=== PATIENT | female | born 1945 | race Caucasian/White ===

== ENCOUNTER → 2018-04-15 | Outpatient (CLI) | payer MEDICARE, BC ==
[~2018-04-15] MED LIST: CARVEDILOL12.5 MG PO; LEVOTHYROXINE75 MCG PO; LORAZEPAM1 MG PO; LOVAZA1 GM PO; NORCO 7.5-3251 EACH PO; PLAVIX75 MG PO; PRAVASTATIN SOD20 MG PO; PREVACID30 M1 PO
--- NOTE | 2018-04-15 12:15 | Diagnostic Imaging Report ---
Exam: Cervical spine, 3 views History: Pain cervical spondylosis Comparison: None. Findings: Cervical spine is visualized from the skull base to the top of T1 on the lateral radiograph. No acute, displaced fracture or subluxation. Soft tissue, ligamentous, and spinal cord abnormalities cannot be excluded on the basis of plain radiography. There is disc space narrowing and marginal disc osteophyte complexes affecting C4-5, C5-6, and C6-7. Bilateral uncovertebral arthrosis at these same levels. Prevertebral soft tissues are of normal thickness. Atlantoaxial interval is within normal limits. Incidental note of calcified granuloma in the left lung apex. Impression: No acute osseous abnormality. Multilevel degenerative disc disease of the cervical spine as above. Signed by: Dr. Aubrey Lopez M.D. on 04/15/2018 12:11 PM
--- NOTE | 2018-04-15 12:17 | Diagnostic Imaging Report ---
Exam: Lumbar spine 2 views History: Spondylosis Comparison: None. Findings: There are 5 nonrib-bearing lumbar-type vertebral bodies. No acute, displaced fracture or subluxation. Multilevel disc space narrowing and marginal osteophytosis affecting L2-3 through L4-L5. Bilateral facet arthropathy at L5-S1. Vertebral body heights are well-maintained. Cholecystectomy clips. Sacroiliac joints are well-maintained. Sacral foramina are intact superiorly. Inferiorly, the sacrum is obscured by rectal gas and stool. Atherosclerotic vascular calcifications. Impression: No acute osseous abnormality. Mild multilevel degenerative disc changes and lumbosacral facet arthropathy. Signed by: Dr. Aubrey Lopez M.D. on 04/15/2018 12:13 PM
== END ==
LOC: RAD 10:54
PROVIDERS: ATTEND Anesthesiology
DX: M47.892 Other spondylosis, cervical region (principal); M47.896 Other spondylosis, lumbar region
CPT/HCPCS: 72040; 72100

== ENCOUNTER → 2018-04-17 | Day surgery (SDC) | payer MEDICARE, BC ==
[2018-04-15 10:39] LABS: BASOPHILS % 0.5 % (0.0-1.0); EOSINOPHILS # (AUTO) 0.3 (0.0-0.4); EOSINOPHILS % 4.2 % (0.0-6.0); HEMATOCRIT 35.1 % (34.2-44.1); HEMOGLOBIN 11.6 g/dL (12.0-16.0); LYMPHOCYTES # (AUTO) 2.5 (1.0-3.2); LYMPHOCYTES % 34.1 % (18.0-39.1); MEAN CORPUSCULAR HEMOGLOBIN 30.3 pg (28-32); MEAN CORPUSCULAR VOLUME 91.6 fL (81-99); MONOCYTES # (AUTO) 0.5 (0.2-0.8); MONOCYTES % 6.1 % (4.4-11.3); NEUTROPHILS # (AUTO) 4.1 (2.1-6.9); NEUTROPHILS % 54.8 % (38.7-80.0); PLATELET COUNT 206 x10e3/uL (140-360); RED BLOOD COUNT 3.83 x10e6/uL (3.6-5.1); RED CELL DISTRIBUTION WIDTH 15.4 % (11.7-14.4)
[~2018-04-17] MED LIST changes: +MIDAZOLAM HCL 2 MG/2 ML VIAL ONE; +ONDANSETRON HCL INJ 2 MG/ML VIAL ONE; +PROPOFOL IV EMULSION 10 MG/ML 50 ML VIAL ONE
[2018-04-17 15:00] VITALS: BP 148/88
--- NOTE | 2018-04-18 06:47 | Operative Report ---
DATE OF PROCEDURE: April 17, 2018 REFERRING PHYSICIAN: Dr. Nancy Pierce PROCEDURES PERFORMED 1. Esophagogastroduodenoscopy with biopsies and esophageal dilatation. 2. Colonoscopy with polypectomy and biopsies. INDICATIONS FOR EGD: Heartburn, indigestion, history of Harding's esophagus, history of dysphagia. INDICATIONS FOR COLONOSCOPY: History of colon polyps, surveillance colonoscopy. MEDICATION: Patient was done under MAC. Please see anesthesiologist's note. PROCEDURE: With the patient in the left lateral decubitus position, the flexible fiberoptic Olympus gastroscope was introduced into the esophagus under direct visualization without any difficulty. There was some patchy erythema noted in the distal esophagus. Minute tongues of velvety red mucosa were noted to extend proximally from the GE junction, and biopsies were obtained to rule out Harding's. The esophagus was then dilated to a size 52-[place]. The scope was then advanced with ease into the stomach, traversing a large hiatal hernia approximately 7 cm in size. The mucosa overlying the antrum and the body revealed some patchy erythema and moderate edema, and biopsies were obtained and sent to stain for H. pylori. Multiple hyperplastic-appearing polyps were noted in the body, and some were partially excised with cold biopsy forceps. Pylorus appeared to be of normal contour and shape. It was intubated with ease, and the scope was advanced all the way to the 2nd portion of the duodenum. The scope was then withdrawn slowly. Mucosa overlying the proximal 2nd portion and the duodenal bulb appeared to be within normal limits. The scope was then withdrawn back into the stomach and retroflexed, and the mucosa overlying the fundus appeared to be within normal limits. The previously described hiatal hernia was also noted in the retroflexed position. A minute nodule was noted in the cardia that was biopsied. The scope was then straightened out. The stomach was decompressed. The scope was subsequently withdrawn. Patient tolerated the procedure well. IMPRESSION 1. Distal esophagitis, mild. 2. Rule out Harding's esophagus. 3. Esophagus dilated to a size 52-[place]. 4. Approximately 7-cm hiatal hernia. 5. Nodule, cardia, biopsied. 6. Gastric polyps, some partially excised with cold biopsy forceps. 7. Gastritis, biopsied. Biopsies sent to stain for H. pylori. PLAN: Follow up histology. Initiate Protonix or continue lansoprazole 30 mg 1 p.o. a.c. b.i.d. The patient was then turned around. After adequate lubrication of the anal canal, a flexible fiberoptic Olympus colonoscope was inserted into the rectum with ease and advanced all the way to the cecum. It was then withdrawn slowly. The mucosa overlying the cecum appeared to be within normal limits. One polyp was snared from the ascending colon. The transverse and descending grossly appeared to be within normal limits. Diverticular disease was noted in the sigmoid colon. The mucosa overlying the sigmoid revealed some patchy areas of erythema and low-grade edema, and biopsies were obtained. There was also a friable fold noted in the sigmoid colon that was biopsied. The rectum grossly appeared to be within normal limits. The scope was then retroflexed into the distal rectum, and small internal hemorrhoids were noted, none of which was actively bleeding. The scope was then straightened out. It was subsequently withdrawn. Also, some external hemorrhoids were noted, and none of them were actively bleeding. Patient tolerated the procedure well. IMPRESSION 1. Ascending colon polyp, snared. 2. Diverticulosis. 3. Friable fold, sigmoid colon, biopsied. 4. Internal hemorrhoids and external hemorrhoids, none of which was actively bleeding. PLAN: Follow up histology. Initiate high-fiber, low-fat diet. Initiate high-fiber supplement. Start VSL #3 one p.o. daily. The patient might benefit from a followup colonoscopy in 3 years. Job#: [id number] MH cc:NANCY PIERCE MD
== END | disposition home or self-care (01) ==
LOC: OR 09:44
PROVIDERS: ATTEND Internal Medicine Gastroenterology
DX: K29.70 Gastritis, unspecified, without bleeding (principal); K63.5 Polyp of colon; K31.7 Polyp of stomach and duodenum; K21.0 Gastro-esophageal reflux disease with esophagitis; K25.9 Gastric ulcer, unspecified as acute or chronic, without hemorrhage or perforation; K58.9 Irritable bowel syndrome, unspecified; K22.70 Barrett's esophagus without dysplasia; K44.9 Diaphragmatic hernia without obstruction or gangrene; K31.89 Other diseases of stomach and duodenum; K57.30 Diverticulosis of large intestine without perforation or abscess without bleeding; K63.89 Other specified diseases of intestine; K64.8 Other hemorrhoids; I10 Essential (primary) hypertension; E03.9 Hypothyroidism, unspecified; F41.9 Anxiety disorder, unspecified; F17.200 Nicotine dependence, unspecified, uncomplicated; Z01.810 Encounter for preprocedural cardiovascular examination; Z01.812 Encounter for preprocedural laboratory examination; Z88.2 Allergy status to sulfonamides; Z79.02 Long term (current) use of antithrombotics/antiplatelets; Z85.3 Personal history of malignant neoplasm of breast; Z86.73 Personal history of transient ischemic attack (TIA), and cerebral infarction without residual deficits; Z80.0 Family history of malignant neoplasm of digestive organs
CPT/HCPCS: 36415; 43239; 43450; 45380; 45385; 85025; 88305; 88312; 93005; J2250; J2405; 45378

== ENCOUNTER 2020-05-19 20:31 | Inpatient (IN) | payer MEDICARE, BC ==
[~2020-05-19] VITALS: Ht 160 cm; Wt 63.5 kg
[2020-05-19 21:18] LABS: BASOPHILS # (AUTO) 0.1 (0.0-0.1); BASOPHILS % 0.6 % (0.0-1.0); EOSINOPHILS # (AUTO) 0.1 (0.0-0.4); EOSINOPHILS % 1.6 % (0.0-6.0); HEMATOCRIT 40.2 % (34.2-44.1); HEMOGLOBIN 13.2 g/dL (12.0-16.0); LYMPHOCYTES # (AUTO) 1.4 (1.0-3.2); LYMPHOCYTES % 17.3 % (18.0-39.1); MEAN CORPUSCULAR HGB CONC 32.8 g/dL (31-35); MEAN CORPUSCULAR VOLUME 91.4 fL (81-99); MONOCYTES # (AUTO) 0.6 (0.2-0.8); MONOCYTES % 7.4 % (4.4-11.3); NEUTROPHILS % 72.4 % (38.7-80.0); PLATELET COUNT 204 x10e3/uL (140-360); RED CELL DISTRIBUTION WIDTH 14.7 % (11.7-14.4)
[2020-05-19 21:35] LABS: ALANINE AMINOTRANSFERASE 165 IU/L (0-55); ALBUMIN 3.5 g/dL (3.5-5.0); ALBUMIN/GLOBULIN RATIO 1.3 (0.8-2.0); ANION GAP 15.5 mmol/L (8-16); BLOOD UREA NITROGEN 18 mg/dL (7-26); BUN/CREATININE RATIO 22 (6-25); CARBON DIOXIDE 31 mmol/L (22-29); CHLORIDE 101 mmol/L (98-107); CREATININE, SERUM 0.83 mg/dL (0.57-1.11); EST GLOMERULAR FILTRATION RATE > 60 ML/MIN (60-); GLUCOSE 134 mg/dL (74-118); POTASSIUM 3.5 mmol/L (3.5-5.1); SODIUM 144 mmol/L (136-145)
[2020-05-19 21:45] LABS: ALKALINE PHOSPHATASE 320 IU/L (40-150)
[2020-05-19] MEDS ORDERED: SODIUM CHLORIDE 0.9% 1000ML 1,000 ML IV SCH (22:30)
[2020-05-19] MEDS ORDERED: CEFEPIME 2 GM/NS 0.9% 100 ML 100 ML IV ONE (22:33)
[2020-05-19] MEDS ORDERED: ALBUTEROL SULFATE HFA 8GM INHALATION AEROSOL INH ONE (22:34)
[2020-05-19] MEDS: CEFEPIME 1GM/NS 0.9% 50 ML 50 ML IV SCH (22:40)
[2020-05-19] MEDS: ALBUTEROL SULFATE HFA 8GM INHALATION AEROSOL INH PRN (22:40)
[2020-05-19] MEDS ORDERED: SODIUM CHLORIDE 0.9% 50ML 50 ML ONE (22:46)
[2020-05-19] MEDS ORDERED: IOPAMIDOL 370 MG/ML 200 ML INFUS..BTL INJ ONE (22:46)
[2020-05-19] MEDS ORDERED: SODIUM CHLORIDE 0.9% 500ML 500 ML IV ONE (23:00)
[2020-05-19] MEDS ORDERED: ONDANSETRON HCL INJ 2MG/ML 2ML 2 MG/ML VIAL IV STA (23:41)
[2020-05-20] VITALS (10 sets, daily range): BP systolic 142–164; BP diastolic 72–86
[2020-05-20] MEDS ORDERED: POLYETHYLENE GLYCOL 3350 17 GM PACK PO PRN (00:30)
[2020-05-20] MEDS ORDERED: MELATONIN 5 MG TABLET PO PRN (00:30)
[2020-05-20] MEDS ORDERED: DEXTROSE 50% SYRINGE 50 ML IV PRN (00:30)
[2020-05-20] MEDS ORDERED: HYDROCODONE/APAP 5MG-325MG TAB PO PRN (00:30)
[2020-05-20] MEDS ORDERED: MORPHINE SULFATE INJ 4 MG/ML INJ 1ML IV PRN ×2 (00:30)
[2020-05-20] MEDS ORDERED: DOCUSATE SODIUM 100 MG CAP PO PRN (00:30)
[2020-05-20] MEDS ORDERED: ONDANSETRON HCL INJ 2MG/ML 2ML 2 MG/ML VIAL IV PRN ×2 (00:30)
[2020-05-20] MEDS ORDERED: HYDRALAZINE HCL 20 MG/ML VIAL IV PRN (00:30)
[2020-05-20 06:17] LABS: BASOPHILS % 0.5 % (0.0-1.0); EOSINOPHILS # (AUTO) 0.1 (0.0-0.4); EOSINOPHILS % 0.7 % (0.0-6.0); HEMATOCRIT 35.7 % (34.2-44.1); HEMOGLOBIN 11.7 g/dL (12.0-16.0); LYMPHOCYTES # (AUTO) 1.3 (1.0-3.2); LYMPHOCYTES % 17.3 % (18.0-39.1); MEAN CORPUSCULAR HEMOGLOBIN 30.3 pg (28-32); MEAN CORPUSCULAR HGB CONC 32.8 g/dL (31-35); MEAN CORPUSCULAR VOLUME 92.5 fL (81-99); MONOCYTES # (AUTO) 0.6 (0.2-0.8); NEUTROPHILS # (AUTO) 5.4 (2.1-6.9); NEUTROPHILS % 72.4 % (38.7-80.0); PLATELET COUNT 145 x10e3/uL (140-360); RED BLOOD COUNT 3.86 x10e6/uL (3.6-5.1); RED CELL DISTRIBUTION WIDTH 14.9 % (11.7-14.4)
[2020-05-20 06:48] LABS: ALANINE AMINOTRANSFERASE 133 IU/L (0-55); ALBUMIN 2.9 g/dL (3.5-5.0); ALBUMIN/GLOBULIN RATIO 1.2 (0.8-2.0); ALKALINE PHOSPHATASE 270 IU/L (40-150); ANION GAP 14.9 mmol/L (8-16); BLOOD UREA NITROGEN 19 mg/dL (7-26); BUN/CREATININE RATIO 27 (6-25); CALCIUM 9.4 mg/dL (8.4-10.2); CARBON DIOXIDE 27 mmol/L (22-29); CHLORIDE 105 mmol/L (98-107); EST GLOMERULAR FILTRATION RATE > 60 ML/MIN (60-); GLUCOSE 104 mg/dL (74-118); POTASSIUM 3.9 mmol/L (3.5-5.1); SODIUM 143 mmol/L (136-145)
[2020-05-20] MEDS ORDERED: PANTOPRAZOLE SOD 40 MG TABEC PO SCH ×2 (07:30→16:30)
[2020-05-20] MEDS: CEFEPIME 1GM/NS 0.9% 50 ML 50 ML IV SCH ×2 (10:00→21:25)
[2020-05-20 10:01] LABS: INR 1.08; PROTHROMBIN TIME 14.6 seconds (11.9-14.5)
[2020-05-20] MEDS ORDERED: SODIUM CHLORIDE 0.9% 250ML 250 ML ONE (10:16)
[2020-05-20] MEDS: SODIUM CHLORIDE 0.9% 1000ML 1,000 ML IV SCH (13:45)
[2020-05-20] MEDS ORDERED: LORAZEPAM 0.5 MG TAB PO PRN (14:00)
[2020-05-20] MEDS: ALBUTEROL SULFATE HFA 8GM INHALATION AEROSOL INH PRN (14:30)
[2020-05-20] MEDS: CARVEDILOL 12.5 MG TAB PO SCH (16:44)
[2020-05-20] MEDS: PANTOPRAZOLE 40 MG 10ML VIAL IV SCH (16:44)
[2020-05-20] MEDS: PRAVASTATIN 20 MG TAB PO SCH (20:17)
[2020-05-20] MEDS: ACETAMINOPHEN 325 MG TAB PO PRN (22:36)
[2020-05-21] VITALS (7 sets, daily range): BP systolic 107–150; BP diastolic 59–77
[2020-05-21] MEDS: SODIUM CHLORIDE 0.9% 1000ML 1,000 ML IV SCH (04:24)
[2020-05-21] MEDS: LEVOTHYROXINE SODIUM 75 MCG TAB PO SCH (05:28)
[2020-05-21 06:58] LABS: BASOPHILS % 0.6 % (0.0-1.0); EOSINOPHILS # (AUTO) 0.1 (0.0-0.4); EOSINOPHILS % 1.3 % (0.0-6.0); HEMATOCRIT 33.7 % (34.2-44.1); HEMOGLOBIN 10.9 g/dL (12.0-16.0); LYMPHOCYTES # (AUTO) 1.4 (1.0-3.2); MEAN CORPUSCULAR HEMOGLOBIN 30.9 pg (28-32); MEAN CORPUSCULAR HGB CONC 32.3 g/dL (31-35); MEAN CORPUSCULAR VOLUME 95.5 fL (81-99); MONOCYTES # (AUTO) 0.5 (0.2-0.8); MONOCYTES % 7.6 % (4.4-11.3); NEUTROPHILS # (AUTO) 4.9 (2.1-6.9); NEUTROPHILS % 69.1 % (38.7-80.0); PLATELET COUNT 176 x10e3/uL (140-360); RED BLOOD COUNT 3.53 x10e6/uL (3.6-5.1); RED CELL DISTRIBUTION WIDTH 14.9 % (11.7-14.4)
[2020-05-21 07:27] LABS: ALANINE AMINOTRANSFERASE 114 IU/L (0-55); ALBUMIN 2.8 g/dL (3.5-5.0); ALBUMIN/GLOBULIN RATIO 1.3 (0.8-2.0); ALKALINE PHOSPHATASE 268 IU/L (40-150); ANION GAP 15.4 mmol/L (8-16); BLOOD UREA NITROGEN 17 mg/dL (7-26); BUN/CREATININE RATIO 24 (6-25); CALCIUM 8.8 mg/dL (8.4-10.2); CARBON DIOXIDE 25 mmol/L (22-29); CHLORIDE 106 mmol/L (98-107); CREATININE, SERUM 0.71 mg/dL (0.57-1.11); EST GLOMERULAR FILTRATION RATE > 60 ML/MIN (60-); GLUCOSE 74 mg/dL (74-118); POTASSIUM 3.4 mmol/L (3.5-5.1); SODIUM 143 mmol/L (136-145)
[2020-05-21] MEDS ORDERED: FENTANYL CITRATE/PF 100MCG/2 ML INJ ONE (08:51)
[2020-05-21] MEDS ORDERED: MIDAZOLAM HCL 2 MG/2 ML VIAL ONE (08:51)
[2020-05-21] MEDS: CARVEDILOL 12.5 MG TAB PO SCH ×2 (09:00→17:29)
[2020-05-21] MEDS: PANTOPRAZOLE 40 MG 10ML VIAL IV SCH ×2 (09:00→17:28)
[2020-05-21] MEDS ORDERED: LIDOCAINE HCL 2% 30 ML TUBE ONE (09:53)
[2020-05-21] MEDS ORDERED: LIDOCAINE HCL 4% 50 ML BTL ONE (09:53)
[2020-05-21] MEDS ORDERED: EPINEPHRINE HCL 1:1000 1ML 1 MG/ML AMP ONE (09:53)
[2020-05-21] MEDS ORDERED: MORPHINE SULFATE 2 MG/ML SYR 1ML IV PRN (12:15)
[2020-05-21] MEDS: CEFEPIME 1GM/NS 0.9% 50 ML 50 ML IV SCH ×2 (12:15→21:17)
[2020-05-21] MEDS: ACETAMINOPHEN 325 MG TAB PO PRN ×2 (12:27→21:17)
[2020-05-21 14:41] LABS: FERRITIN 93.04 ng/mL (4.63-204.00)
[2020-05-21 19:59] LABS: CLARITY,URINE SL CLOUDY (CLEAR); COLOR,URINE YELLOW (YELLOW)
[2020-05-21 20:00] LABS: BILIRUBIN,URINE NEGATIVE (NEGATIVE); KETONES,URINE 2+ (NEGATIVE); LEUKOCYTE ESTERASE ,URINE NEGATIVE (NEGATIVE); NITRITE,URINE NEGATIVE (NEGATIVE); PROTEIN,URINE DIPSTICK NEGATIVE (NEGATIVE); URINE UROBILINOGEN 0.2 mg/dL (0.2 - 1)
[2020-05-21 20:17] LABS: AMORPHOUS SEDIMENT,URINE MODERATE (FEW); BACTERIA,URINE MODERATE /HPF; EPITHELIAL CELLS,URINE FEW /LPF
[2020-05-21] MEDS: PRAVASTATIN 20 MG TAB PO SCH (21:00)
[2020-05-21] MEDS ORDERED: SODIUM CHLORIDE 0.9% 250ML 0 ML ONE (21:05)
[2020-05-22] VITALS (8 sets, daily range): BP systolic 115–154; BP diastolic 60–94
[2020-05-22] MEDS: LEVOTHYROXINE SODIUM 75 MCG TAB PO SCH (05:22)
[2020-05-22 05:38] LABS: BASOPHILS % 0.5 % (0.0-1.0); EOSINOPHILS # (AUTO) 0.1 (0.0-0.4); EOSINOPHILS % 1.6 % (0.0-6.0); HEMATOCRIT 33.5 % (34.2-44.1); HEMOGLOBIN 11.1 g/dL (12.0-16.0); LYMPHOCYTES # (AUTO) 1.1 (1.0-3.2); LYMPHOCYTES % 18.1 % (18.0-39.1); MEAN CORPUSCULAR HEMOGLOBIN 30.8 pg (28-32); MEAN CORPUSCULAR HGB CONC 33.1 g/dL (31-35); MEAN CORPUSCULAR VOLUME 93.1 fL (81-99); MONOCYTES # (AUTO) 0.5 (0.2-0.8); MONOCYTES % 7.3 % (4.4-11.3); NEUTROPHILS # (AUTO) 4.5 (2.1-6.9); NEUTROPHILS % 70.8 % (38.7-80.0); PLATELET COUNT 157 x10e3/uL (140-360); RED CELL DISTRIBUTION WIDTH 14.6 % (11.7-14.4)
[2020-05-22 06:09] LABS: ALANINE AMINOTRANSFERASE 155 IU/L (0-55); ALBUMIN/GLOBULIN RATIO 1.3 (0.8-2.0); ALKALINE PHOSPHATASE 294 IU/L (40-150); ANION GAP 13.4 mmol/L (8-16); BLOOD UREA NITROGEN 14 mg/dL (7-26); BUN/CREATININE RATIO 19 (6-25); CALCIUM 9.4 mg/dL (8.4-10.2); CARBON DIOXIDE 27 mmol/L (22-29); CHLORIDE 104 mmol/L (98-107); CREATININE, SERUM 0.74 mg/dL (0.57-1.11); EST GLOMERULAR FILTRATION RATE > 60 ML/MIN (60-); GLUCOSE 85 mg/dL (74-118); POTASSIUM 3.4 mmol/L (3.5-5.1); SODIUM 141 mmol/L (136-145)
[2020-05-22] MEDS: CARVEDILOL 12.5 MG TAB PO SCH ×2 (08:57→17:26)
[2020-05-22] MEDS: PANTOPRAZOLE 40 MG 10ML VIAL IV SCH ×2 (08:57→17:26)
[2020-05-22] MEDS: CEFEPIME 1GM/NS 0.9% 50 ML 50 ML IV SCH ×2 (08:57→20:58)
[2020-05-22] MEDS: ACETAMINOPHEN 325 MG TAB PO PRN ×2 (09:00→21:03)
[2020-05-22] MEDS ORDERED: HYDROCODONE/APAP 5MG-325MG TAB PO PRN (13:15)
[2020-05-22] MEDS ORDERED: POTASSIUM CHLORIDE 20 MEQ TAB CR PO ONE (13:30)
[2020-05-22] MEDS: ENOXAPARIN SOD INJ 40 MG/0.4 ML SYR SC SCH (17:26)
[2020-05-22] MEDS: PRAVASTATIN 20 MG TAB PO SCH (20:58)
[2020-05-23] VITALS (8 sets, daily range): BP systolic 121–156; BP diastolic 60–78
[2020-05-23] MEDS: LEVOTHYROXINE SODIUM 75 MCG TAB PO SCH (05:26)
[2020-05-23] MEDS: PANTOPRAZOLE 40 MG 10ML VIAL IV SCH ×2 (09:12→16:33)
[2020-05-23] MEDS: CARVEDILOL 12.5 MG TAB PO SCH ×2 (09:12→18:04)
[2020-05-23] MEDS: CEFEPIME 1GM/NS 0.9% 50 ML 50 ML IV SCH ×2 (09:12→21:09)
[2020-05-23] MEDS: SUCRALFATE 1 GM/10 ML SUSP NG SCH ×2 (18:04→21:00)
[2020-05-23] MEDS: ENOXAPARIN SOD INJ 40 MG/0.4 ML SYR SC SCH (18:04)
[2020-05-23] MEDS: PRAVASTATIN 20 MG TAB PO SCH (21:00)
[2020-05-24] VITALS (8 sets, daily range): BP systolic 123–148; BP diastolic 64–81
[2020-05-24] MEDS: LEVOTHYROXINE SODIUM 75 MCG TAB PO SCH (05:46)
[2020-05-24 05:58] LABS: ALANINE AMINOTRANSFERASE 178 IU/L (0-55); ALBUMIN 2.8 g/dL (3.5-5.0); ALBUMIN/GLOBULIN RATIO 1.2 (0.8-2.0); ALKALINE PHOSPHATASE 336 IU/L (40-150); ANION GAP 14.7 mmol/L (8-16); BLOOD UREA NITROGEN 12 mg/dL (7-26); BUN/CREATININE RATIO 17 (6-25); CALCIUM 9.3 mg/dL (8.4-10.2); CARBON DIOXIDE 29 mmol/L (22-29); CHLORIDE 102 mmol/L (98-107); CREATININE, SERUM 0.72 mg/dL (0.57-1.11); EST GLOMERULAR FILTRATION RATE > 60 ML/MIN (60-); GLUCOSE 81 mg/dL (74-118); POTASSIUM 3.7 mmol/L (3.5-5.1); SODIUM 142 mmol/L (136-145)
[2020-05-24] MEDS: SUCRALFATE 1 GM/10 ML SUSP NG SCH ×4 (07:30→21:00)
[2020-05-24] MEDS: GUAIFENESIN/CODEINE 10 ML CUP PO PRN (07:57)
[2020-05-24] MEDS: CARVEDILOL 12.5 MG TAB PO SCH ×2 (09:00→16:44)
[2020-05-24] MEDS: PANTOPRAZOLE 40 MG 10ML VIAL IV SCH (09:00)
[2020-05-24] MEDS: CEFEPIME 1GM/NS 0.9% 50 ML 50 ML IV SCH ×2 (09:05→22:00)
[2020-05-24] MEDS ORDERED: LEVOFLOXACIN250 MG PO (13:43)
[2020-05-24] MEDS ORDERED: TESSALON PERLE100 MG PO (13:44)
[2020-05-24] MEDS: PANTOPRAZOLE SOD 40 MG TABEC PO SCH (16:30)
[2020-05-24] MEDS: PRAVASTATIN 20 MG TAB PO SCH (21:00)
[2020-05-25] VITALS (8 sets, daily range): BP systolic 122–152; BP diastolic 64–72
[2020-05-25 05:16] LABS: BASOPHILS # (AUTO) 0.1 (0.0-0.1); BASOPHILS % 0.8 % (0.0-1.0); EOSINOPHILS # (AUTO) 0.2 (0.0-0.4); HEMATOCRIT 33.9 % (34.2-44.1); HEMOGLOBIN 11.4 g/dL (12.0-16.0); LYMPHOCYTES # (AUTO) 1.3 (1.0-3.2); MEAN CORPUSCULAR HEMOGLOBIN 31.3 pg (28-32); MEAN CORPUSCULAR HGB CONC 33.6 g/dL (31-35); MEAN CORPUSCULAR VOLUME 93.1 fL (81-99); MONOCYTES # (AUTO) 0.6 (0.2-0.8); MONOCYTES % 7.8 % (4.4-11.3); NEUTROPHILS # (AUTO) 5.2 (2.1-6.9); NEUTROPHILS % 70.5 % (38.7-80.0); PLATELET COUNT 159 x10e3/uL (140-360); RED BLOOD COUNT 3.64 x10e6/uL (3.6-5.1); RED CELL DISTRIBUTION WIDTH 14.5 % (11.7-14.4)
[2020-05-25 05:39] LABS: ANION GAP 13.6 mmol/L (8-16); BLOOD UREA NITROGEN 16 mg/dL (7-26); BUN/CREATININE RATIO 22 (6-25); CALCIUM 9.9 mg/dL (8.4-10.2); CARBON DIOXIDE 29 mmol/L (22-29); CHLORIDE 102 mmol/L (98-107); CREATININE, SERUM 0.74 mg/dL (0.57-1.11); EST GLOMERULAR FILTRATION RATE > 60 ML/MIN (60-); GLUCOSE 97 mg/dL (74-118); POTASSIUM 3.6 mmol/L (3.5-5.1); SODIUM 141 mmol/L (136-145)
[2020-05-25] MEDS: LEVOTHYROXINE SODIUM 75 MCG TAB PO SCH (06:00)
[2020-05-25] MEDS: SUCRALFATE 1 GM/10 ML SUSP NG SCH ×4 (07:30→21:19)
[2020-05-25] MEDS: CARVEDILOL 12.5 MG TAB PO SCH ×2 (09:00→17:18)
[2020-05-25] MEDS: CEFEPIME 1GM/NS 0.9% 50 ML 50 ML IV SCH ×2 (09:01→22:00)
[2020-05-25] MEDS: PANTOPRAZOLE SOD 40 MG TABEC PO SCH ×2 (11:26→17:18)
[2020-05-25] MEDS ORDERED: LIDOCAINE HCL 4% 50 ML BTL ONE (11:53)
[2020-05-25] MEDS ORDERED: LIDOCAINE HCL 2% 30 ML TUBE ONE (11:54)
[2020-05-25] MEDS ORDERED: EPINEPHRINE HCL 1:1000 1ML 1 MG/ML AMP ONE (11:54)
[2020-05-25] MEDS ORDERED: LIDOCAINE HCL 2% LOCAL INJ 5 ML SDV VIAL INJ ONE (12:38)
[2020-05-25] MEDS ORDERED: ONDANSETRON HCL INJ 2MG/ML 2ML 2 MG/ML VIAL ONE (12:38)
[2020-05-25] MEDS ORDERED: PHENYLEPHRINE HCL 1% 10 MG/ML VIAL ONE (12:38)
[2020-05-25] MEDS ORDERED: PROPOFOL IV EMULSION 10 MG/ML 20 ML VIAL ONE (12:38)
[2020-05-25] MEDS ORDERED: SEVOFLURANE INHAL SOLN 250 ML PEN BTL ONE (12:38)
[2020-05-25] MEDS: PRAVASTATIN 20 MG TAB PO SCH (21:19)
[2020-05-25] MEDS: GUAIFENESIN/CODEINE 10 ML CUP PO PRN (23:52)
[2020-05-25] MEDS: ONDANSETRON HCL 4 MG ORAL DISINTEGRATING TAB PO PRN (23:52)
[2020-05-26] VITALS (7 sets, daily range): BP systolic 125–152; BP diastolic 52–74
[2020-05-26] MEDS: BENZONATATE 100 MG CAP PO PRN ×2 (02:35→17:20)
[2020-05-26] MEDS: GUAIFENESIN/CODEINE 10 ML CUP PO PRN ×3 (05:45→22:00)
[2020-05-26] MEDS: LEVOTHYROXINE SODIUM 75 MCG TAB PO SCH (06:00)
[2020-05-26] MEDS: PANTOPRAZOLE SOD 40 MG TABEC PO SCH ×2 (09:34→17:12)
[2020-05-26] MEDS: CARVEDILOL 12.5 MG TAB PO SCH ×2 (09:34→17:12)
[2020-05-26] MEDS: SUCRALFATE 1 GM/10 ML SUSP NG SCH ×4 (09:35→21:30)
[2020-05-26] MEDS ORDERED: SODIUM CHLORIDE 0.9% 250ML 250 ML ONE (09:45)
[2020-05-26] MEDS: CEFEPIME 1GM/NS 0.9% 50 ML 50 ML IV SCH ×2 (09:45→21:30)
[2020-05-26] MEDS ORDERED: GADOBENATE DIMEGLUMINE 1 ML IV ONE (12:13)
[2020-05-26] MEDS: ENOXAPARIN SOD INJ 40 MG/0.4 ML SYR SC SCH (17:15)
[2020-05-26] MEDS: PRAVASTATIN 20 MG TAB PO SCH (21:00)
[2020-05-27] VITALS (9 sets, daily range): BP systolic 113–145; BP diastolic 54–86
[2020-05-27] MEDS: BENZONATATE 100 MG CAP PO PRN ×2 (04:45→18:33)
[2020-05-27] MEDS: LEVOTHYROXINE SODIUM 75 MCG TAB PO SCH (05:07)
[2020-05-27] MEDS: ALBUTEROL/IPRATROPIUM 3 ML NEB NEB PRN (05:31)
[2020-05-27] MEDS: GUAIFENESIN/CODEINE 10 ML CUP PO PRN ×2 (08:47→21:12)
[2020-05-27] MEDS: PANTOPRAZOLE SOD 40 MG TABEC PO SCH ×2 (08:54→17:12)
[2020-05-27] MEDS: CEFEPIME 1GM/NS 0.9% 50 ML 50 ML IV SCH ×2 (08:54→21:12)
[2020-05-27] MEDS: SUCRALFATE 1 GM/10 ML SUSP NG SCH ×4 (08:54→21:11)
[2020-05-27] MEDS: CARVEDILOL 12.5 MG TAB PO SCH ×2 (09:20→18:01)
[2020-05-27] MEDS: ALLOPURINOL 100 MG TAB PO SCH ×2 (12:33→21:11)
[2020-05-27] MEDS: PYRIDOSTIGMINE BROMIDE 60 MG TAB PO SCH ×2 (15:42→21:11)
[2020-05-27] MEDS: ACETAMINOPHEN 325 MG TAB PO PRN (17:12)
[2020-05-27] MEDS: PRAVASTATIN 20 MG TAB PO SCH (20:39)
[2020-05-27] MEDS: ONDANSETRON HCL 4 MG ORAL DISINTEGRATING TAB PO PRN (21:12)
[2020-05-28] VITALS (9 sets, daily range): BP systolic 110–121; BP diastolic 40–69
[2020-05-28] MEDS: GUAIFENESIN/CODEINE 10 ML CUP PO PRN ×3 (04:50→17:45)
[2020-05-28] MEDS: LEVOTHYROXINE SODIUM 75 MCG TAB PO SCH (06:46)
[2020-05-28] MEDS: SUCRALFATE 1 GM/10 ML SUSP NG SCH ×4 (08:30→21:37)
[2020-05-28] MEDS: PANTOPRAZOLE SOD 40 MG TABEC PO SCH ×2 (08:30→15:52)
[2020-05-28] MEDS: BENZONATATE 100 MG CAP PO PRN ×2 (08:40→14:56)
[2020-05-28] MEDS: CARVEDILOL 12.5 MG TAB PO SCH ×2 (08:42→17:45)
[2020-05-28] MEDS: ALLOPURINOL 100 MG TAB PO SCH ×2 (08:42→21:00)
[2020-05-28] MEDS: PYRIDOSTIGMINE BROMIDE 60 MG TAB PO SCH ×3 (08:42→21:37)
[2020-05-28] MEDS: CEFEPIME 1GM/NS 0.9% 50 ML 50 ML IV SCH ×2 (09:00→21:37)
[2020-05-28] MEDS: ENOXAPARIN SOD INJ 40 MG/0.4 ML SYR SC SCH (12:20)
[2020-05-28] MEDS: ALBUTEROL/IPRATROPIUM 3 ML NEB NEB PRN ×2 (14:30→19:00)
[2020-05-28] MEDS: ACETAMINOPHEN 325 MG TAB PO PRN (18:10)
[2020-05-28] MEDS: ONDANSETRON HCL 4 MG ORAL DISINTEGRATING TAB PO PRN (18:10)
[2020-05-28] MEDS: PRAVASTATIN 20 MG TAB PO SCH (21:37)
[2020-05-29] VITALS (8 sets, daily range): BP systolic 114–134; BP diastolic 50–71
[2020-05-29] MEDS: ALBUTEROL/IPRATROPIUM 3 ML NEB NEB PRN ×4 (01:00→19:45)
[2020-05-29] MEDS: LEVOTHYROXINE SODIUM 75 MCG TAB PO SCH (06:35)
[2020-05-29] MEDS: GUAIFENESIN/CODEINE 10 ML CUP PO PRN ×4 (06:39→21:25)
[2020-05-29] MEDS: SUCRALFATE 1 GM/10 ML SUSP NG SCH ×4 (08:30→21:25)
[2020-05-29] MEDS: PANTOPRAZOLE SOD 40 MG TABEC PO SCH ×2 (08:30→15:46)
[2020-05-29] MEDS: ENOXAPARIN SOD INJ 40 MG/0.4 ML SYR SC SCH (09:14)
[2020-05-29] MEDS: ALLOPURINOL 100 MG TAB PO SCH ×2 (09:14→21:00)
[2020-05-29] MEDS: PYRIDOSTIGMINE BROMIDE 60 MG TAB PO SCH ×3 (09:14→21:25)
[2020-05-29] MEDS: BENZONATATE 100 MG CAP PO PRN ×2 (09:15→15:46)
[2020-05-29] MEDS: CEFEPIME 1GM/NS 0.9% 50 ML 50 ML IV SCH (09:18)
[2020-05-29] MEDS: CARVEDILOL 12.5 MG TAB PO SCH ×2 (09:18→16:05)
[2020-05-29] MEDS: ONDANSETRON HCL 4 MG ORAL DISINTEGRATING TAB PO PRN (17:19)
[2020-05-29] MEDS: ACETAMINOPHEN 325 MG TAB PO PRN (17:19)
[2020-05-29] MEDS: PRAVASTATIN 20 MG TAB PO SCH (21:00)
[2020-05-30 01:34] VITALS: BP 121/52
[2020-05-30] MEDS: ALBUTEROL/IPRATROPIUM 3 ML NEB NEB PRN ×4 (01:35→19:00)
[2020-05-30 05:45] VITALS: BP 135/57
[2020-05-30] MEDS: LEVOTHYROXINE SODIUM 75 MCG TAB PO SCH (06:00)
[2020-05-30 06:22] LABS: ANION GAP 15.2 mmol/L (8-16); BLOOD UREA NITROGEN 21 mg/dL (7-26); BUN/CREATININE RATIO 28 (6-25); CALCIUM 9.6 mg/dL (8.4-10.2); CARBON DIOXIDE 27 mmol/L (22-29); CHLORIDE 102 mmol/L (98-107); CREATININE, SERUM 0.74 mg/dL (0.57-1.11); EST GLOMERULAR FILTRATION RATE > 60 ML/MIN (60-); GLUCOSE 108 mg/dL (74-118); POTASSIUM 3.2 mmol/L (3.5-5.1); SODIUM 141 mmol/L (136-145)
[2020-05-30] MEDS: PANTOPRAZOLE SOD 40 MG TABEC PO SCH ×2 (07:30→16:30)
[2020-05-30] MEDS: SUCRALFATE 1 GM/10 ML SUSP NG SCH ×4 (07:30→22:00)
[2020-05-30 08:30] VITALS: BP 145/57
[2020-05-30] MEDS: CARVEDILOL 12.5 MG TAB PO SCH ×2 (08:35→17:00)
[2020-05-30] MEDS: ALLOPURINOL 100 MG TAB PO SCH ×2 (08:36→21:00)
[2020-05-30] MEDS: PYRIDOSTIGMINE BROMIDE 60 MG TAB PO SCH ×3 (08:36→22:00)
[2020-05-30] MEDS: ENOXAPARIN SOD INJ 40 MG/0.4 ML SYR SC SCH (08:37)
[2020-05-30] MEDS ORDERED: ONDANSETRON HCL INJ 2MG/ML 2ML 2 MG/ML VIAL IV PRN (11:30)
[2020-05-30] MEDS: DEXAMETHASONE PHOS 4MG/ML 5ML MULTIDOSE VIAL IV SCH ×2 (12:00→18:00)
[2020-05-30 12:01] VITALS: BP 143/56
[2020-05-30 12:32] LABS: BASOPHILS % 0.3 % (0.0-1.0); EOSINOPHILS % 0.2 % (0.0-6.0); HEMOGLOBIN 10.4 g/dL (12.0-16.0); LYMPHOCYTES % 10.8 % (18.0-39.1); MEAN CORPUSCULAR HEMOGLOBIN 30.5 pg (28-32); MEAN CORPUSCULAR HGB CONC 32.5 g/dL (31-35); MEAN CORPUSCULAR VOLUME 93.8 fL (81-99); MONOCYTES # (AUTO) 0.7 (0.2-0.8); MONOCYTES % 7.7 % (4.4-11.3); NEUTROPHILS % 79.7 % (38.7-80.0); PLATELET COUNT 192 x10e3/uL (140-360); RED BLOOD COUNT 3.41 x10e6/uL (3.6-5.1); RED CELL DISTRIBUTION WIDTH 15.4 % (11.7-14.4)
[2020-05-30] MEDS ORDERED: POTASSIUM CHLORIDE 20MEQ/100ML 200 ML IV ONE (13:00)
[2020-05-30] MEDS: METOCLOPRAMIDE HCL 10 MG/2ML VIAL IV SCH ×3 (13:00→22:00)
[2020-05-30] MEDS ORDERED: SODIUM CHLORIDE 0.9% 1000ML 1,000 ML IV SCH (13:15)
[2020-05-30] MEDS: PANTOPRAZOLE 40 MG 10ML VIAL IV SCH (13:38)
[2020-05-30 16:00] VITALS: BP 159/87
[2020-05-30] MEDS: HYDROCODONE/APAP 5MG-325MG TAB PO PRN (17:30)
[2020-05-30] MEDS ORDERED: FUROSEMIDE INJ 10 MG/ML 4 ML VIAL IV ONE (17:45)
[2020-05-30] MEDS ORDERED: LOPERAMIDE HCL 2 MG CAP PO ONE (17:45)
[2020-05-30] MEDS: CEFEPIME 1GM/NS 0.9% 50 ML 50 ML IV SCH (18:00)
[2020-05-30] MEDS ORDERED: SODIUM CHLORIDE 0.9% 250ML 250 ML ONE (18:41)
[2020-05-30] MEDS ORDERED: SODIUM CHLORIDE 0.9% 50ML 50 ML ONE (18:51)
[2020-05-30] MEDS ORDERED: IOPAMIDOL 370 MG/ML 200 ML INFUS..BTL INJ ONE (18:51)
[2020-05-30 20:10] VITALS: BP 125/66
[2020-05-30] MEDS: PRAVASTATIN 20 MG TAB PO SCH (21:00)
[2020-05-30] MEDS: METRONIDAZOLE 500MG/NS 100ML 100 ML IV SCH (22:00)
[2020-05-31] VITALS (8 sets, daily range): BP systolic 128–156; BP diastolic 62–84
[2020-05-31] MEDS: DEXAMETHASONE PHOS 4MG/ML 5ML MULTIDOSE VIAL IV SCH ×2 (00:25→06:10)
[2020-05-31] MEDS: ALBUTEROL/IPRATROPIUM 3 ML NEB NEB PRN ×3 (01:10→14:57)
[2020-05-31] MEDS: GUAIFENESIN/CODEINE 10 ML CUP PO PRN ×2 (02:20→22:21)
[2020-05-31] MEDS: LEVOTHYROXINE SODIUM 75 MCG TAB PO SCH (06:00)
[2020-05-31] MEDS: CEFEPIME 1GM/NS 0.9% 50 ML 50 ML IV SCH ×2 (06:10→16:48)
[2020-05-31] MEDS: METOCLOPRAMIDE HCL 10 MG/2ML VIAL IV SCH ×3 (06:10→21:23)
[2020-05-31] MEDS: PANTOPRAZOLE 40 MG 10ML VIAL IV SCH ×2 (06:10→16:48)
[2020-05-31 06:25] LABS: BASOPHILS % 0.2 % (0.0-1.0); HEMATOCRIT 32.9 % (34.2-44.1); LYMPHOCYTES # (AUTO) 1.1 (1.0-3.2); LYMPHOCYTES % 8.6 % (18.0-39.1); MEAN CORPUSCULAR HGB CONC 33.4 g/dL (31-35); MEAN CORPUSCULAR VOLUME 92.7 fL (81-99); MONOCYTES # (AUTO) 0.7 (0.2-0.8); MONOCYTES % 5.7 % (4.4-11.3); NEUTROPHILS # (AUTO) 10.2 (2.1-6.9); NEUTROPHILS % 83.5 % (38.7-80.0); PLATELET COUNT 246 x10e3/uL (140-360); RED BLOOD COUNT 3.55 x10e6/uL (3.6-5.1); RED CELL DISTRIBUTION WIDTH 15.2 % (11.7-14.4)
[2020-05-31 06:43] LABS: ANION GAP 17.2 mmol/L (8-16); CALCIUM 9.3 mg/dL (8.4-10.2); CREATININE, SERUM 0.97 mg/dL (0.57-1.11); POTASSIUM 3.2 mmol/L (3.5-5.1)
[2020-05-31] MEDS: METRONIDAZOLE 500MG/NS 100ML 100 ML IV SCH ×3 (06:45→21:23)
[2020-05-31] MEDS: ALLOPURINOL 100 MG TAB PO SCH ×2 (09:00→21:00)
[2020-05-31] MEDS: SUCRALFATE 1 GM/10 ML SUSP NG SCH ×4 (09:12→21:23)
[2020-05-31] MEDS: PANTOPRAZOLE SOD 40 MG TABEC PO SCH ×2 (09:12→16:47)
[2020-05-31] MEDS: CARVEDILOL 12.5 MG TAB PO SCH ×2 (09:12→16:48)
[2020-05-31] MEDS: PYRIDOSTIGMINE BROMIDE 60 MG TAB PO SCH ×3 (09:13→21:23)
[2020-05-31] MEDS: ENOXAPARIN SOD INJ 40 MG/0.4 ML SYR SC SCH (09:13)
[2020-05-31] MEDS: DEXAMETHASONE SOD PHOS INJ 4 MG/ML VIAL IV SCH ×2 (13:03→16:48)
[2020-05-31] MEDS: HYDROCODONE/APAP 5MG-325MG TAB PO PRN ×2 (14:39→22:21)
[2020-05-31] MEDS ORDERED: POTASSIUM CHLORIDE 20 MEQ TAB CR PO PRN (18:15)
[2020-05-31] MEDS ORDERED: SODIUM CHLORIDE 0.9% 250ML 250 ML ONE (21:18)
[2020-05-31] MEDS: PRAVASTATIN 20 MG TAB PO SCH (21:23)
[2020-06-01] VITALS (9 sets, daily range): BP systolic 147–184; BP diastolic 69–109
[2020-06-01] MEDS: DEXAMETHASONE SOD PHOS INJ 4 MG/ML VIAL IV SCH ×4 (00:23→16:41)
[2020-06-01] MEDS: PANTOPRAZOLE 40 MG 10ML VIAL IV SCH ×2 (05:39→09:08)
[2020-06-01] MEDS: METOCLOPRAMIDE HCL 10 MG/2ML VIAL IV SCH ×3 (05:39→22:29)
[2020-06-01] MEDS: CEFEPIME 1GM/NS 0.9% 50 ML 50 ML IV SCH ×2 (05:39→18:22)
[2020-06-01] MEDS: LEVOTHYROXINE SODIUM 75 MCG TAB PO SCH (05:39)
[2020-06-01] MEDS: METRONIDAZOLE 500MG/NS 100ML 100 ML IV SCH ×3 (05:39→22:29)
[2020-06-01] MEDS: ALBUTEROL/IPRATROPIUM 3 ML NEB NEB PRN ×2 (07:25→14:30)
[2020-06-01] MEDS: SUCRALFATE 1 GM/10 ML SUSP NG SCH ×4 (07:30→20:43)
[2020-06-01] MEDS: PANTOPRAZOLE SOD 40 MG TABEC PO SCH ×2 (07:30→09:07)
[2020-06-01] MEDS: PYRIDOSTIGMINE BROMIDE 60 MG TAB PO SCH ×3 (09:00→20:43)
[2020-06-01] MEDS: ALLOPURINOL 100 MG TAB PO SCH ×2 (09:00→09:09)
[2020-06-01] MEDS: CARVEDILOL 12.5 MG TAB PO SCH ×3 (09:00→16:40)
[2020-06-01] MEDS: HYDROCODONE/APAP 5MG-325MG TAB PO PRN ×2 (09:14→16:28)
[2020-06-01] MEDS ORDERED: CEPACOL SORE THROAT LOZENGES PO PRN (16:15)
[2020-06-01] MEDS: PRAVASTATIN 20 MG TAB PO SCH (20:43)
[2020-06-02] VITALS (7 sets, daily range): BP systolic 132–174; BP diastolic 71–85
[2020-06-02] MEDS: DEXAMETHASONE SOD PHOS INJ 4 MG/ML VIAL IV SCH ×5 (00:02→18:00)
[2020-06-02] MEDS: METRONIDAZOLE 500MG/NS 100ML 100 ML IV SCH ×3 (05:17→13:47)
[2020-06-02] MEDS: CEFEPIME 1GM/NS 0.9% 50 ML 50 ML IV SCH ×2 (05:17→18:00)
[2020-06-02] MEDS: PANTOPRAZOLE 40 MG 10ML VIAL IV SCH ×2 (05:17→18:00)
[2020-06-02] MEDS: LEVOTHYROXINE SODIUM 75 MCG TAB PO SCH (05:17)
[2020-06-02] MEDS: METOCLOPRAMIDE HCL 10 MG/2ML VIAL IV SCH ×2 (05:17→14:00)
[2020-06-02 05:21] LABS: ALBUMIN 2.4 g/dL (3.5-5.0); ALBUMIN/GLOBULIN RATIO 0.7 (0.8-2.0); ANION GAP 16.2 mmol/L (8-16); CALCIUM 8.9 mg/dL (8.4-10.2); CREATININE, SERUM 1.04 mg/dL (0.57-1.11); POTASSIUM 3.2 mmol/L (3.5-5.1)
[2020-06-02] MEDS: PANTOPRAZOLE SOD 40 MG TABEC PO SCH ×2 (07:30→16:30)
[2020-06-02] MEDS: SUCRALFATE 1 GM/10 ML SUSP NG SCH ×3 (07:30→16:30)
[2020-06-02] MEDS: ALLOPURINOL 100 MG TAB PO SCH (09:00)
[2020-06-02] MEDS: PYRIDOSTIGMINE BROMIDE 60 MG TAB PO SCH ×2 (09:00→15:00)
[2020-06-02] MEDS: HYDROCODONE/APAP 5MG-325MG TAB PO PRN (12:15)
[2020-06-02] MEDS: ALBUTEROL/IPRATROPIUM 3 ML NEB NEB PRN (13:05)
[2020-06-02] MEDS: CARVEDILOL 12.5 MG TAB PO SCH (17:00)
== END 2020-06-02 20:50 | disposition home or self-care (01) | DRG 180 ==
LOC: ER 20:45 → ERHOLD 22:30 → MED/SURG2 05-20 00:15
PROVIDERS: ADMIT Internal Medicine; ATTEND Internal Medicine
PROC: 02HV33Z Insertion of Infusion Device into Superior Vena Cava, Percutaneous Approach (ICD-10-PCS; principal; 2020-05-20)
PROC: 0FD03ZX Extraction of Liver, Percutaneous Approach, Diagnostic (ICD-10-PCS; 2020-05-21)
PROC: 0BD28ZX Extraction of Carina, Via Natural or Artificial Opening Endoscopic, Diagnostic (ICD-10-PCS; 2020-05-25)
PROC: 0BD78ZX Extraction of Left Main Bronchus, Via Natural or Artificial Opening Endoscopic, Diagnostic (ICD-10-PCS; 2020-05-25)
PROC: 0BDB8ZX Extraction of Left Lower Lobe Bronchus, Via Natural or Artificial Opening Endoscopic, Diagnostic (ICD-10-PCS; 2020-05-25)
DX: C34.32 Malignant neoplasm of lower lobe, left bronchus or lung (principal); J18.9 Pneumonia, unspecified organism; E43 Unspecified severe protein-calorie malnutrition; C77.1 Secondary and unspecified malignant neoplasm of intrathoracic lymph nodes; C78.7 Secondary malignant neoplasm of liver and intrahepatic bile duct; I10 Essential (primary) hypertension; R59.0 Localized enlarged lymph nodes; J38.01 Paralysis of vocal cords and larynx, unilateral; R00.0 Tachycardia, unspecified; Z86.73 Personal history of transient ischemic attack (TIA), and cerebral infarction without residual deficits; Z85.3 Personal history of malignant neoplasm of breast; K76.0 Fatty (change of) liver, not elsewhere classified; Z20.828 Contact with and (suspected) exposure to other viral communicable diseases; E86.0 Dehydration; E11.42 Type 2 diabetes mellitus with diabetic polyneuropathy; Z79.899 Other long term (current) drug therapy; E11.51 Type 2 diabetes mellitus with diabetic peripheral angiopathy without gangrene; Z79.01 Long term (current) use of anticoagulants; Z95.2 Presence of prosthetic heart valve; I25.10 Atherosclerotic heart disease of native coronary artery without angina pectoris; Z68.24 Body mass index [BMI] 24.0-24.9, adult
CPT/HCPCS: 31622; 36415; 36569; 47000; 70450; 70553; 71045; 71046; 71260; 74177; 74230; 74470; 76942; 80048; 80053; 81001; 82105; 82378; 82607; 82728; 82746; 83519; 83520; 83540; 83605; 83874; 83880; 84466; 84484; 85025; 85045; 85610; 85730; 86255; 86301; 86304; 87040; 87070; 87102; 87116; 87205; 87206; 87400; 88112; 88305; 88307; 88313; 88342; 93005; 94640; 99284; J0171; J0360; J0692; J1100; J1650; J1940; J2001; J2250; J2370; J2405; J2765; J3010; J3480; J7030; J7040; J7050; Q0162; Q9967; U0002

== ENCOUNTER → 2020-05-19 | Outpatient (CLI) | payer MEDICARE, BC ==
[~2020-05-19] MED LIST changes: -MIDAZOLAM HCL 2 MG/2 ML VIAL ONE; -ONDANSETRON HCL INJ 2 MG/ML VIAL ONE; -PROPOFOL IV EMULSION 10 MG/ML 50 ML VIAL ONE
--- NOTE | 2020-05-19 14:57 | Diagnostic Imaging Report ---
EXAMINATION: CHEST 2 VIEWS INDICATION: Cough COMPARISON: None FINDINGS: LINES/TUBES:None LUNGS:The lungs are well-inflated. There is diffuse hazy opacity of the left lung. PLEURA:No pleural effusion or pneumothorax. MEDIASTINUM:The cardiomediastinal silhouette appears normal in size and shape. Atherosclerotic calcifications of the thoracic aorta. BONES/SOFT TISSUES:No acute osseous injury. ABDOMEN: Possible small hiatal hernia. No free air under the diaphragm. IMPRESSION: Diffuse left lung hazy opacity may be related to superimposed soft tissue as it is not well appreciated on the lateral projection, however atypical infection should be excluded clinically. Signed by: Yeni Foster MD on 05/19/2020 2:53 PM
== END ==
LOC: RAD 13:43
PROVIDERS: ATTEND Internal Medicine Gastroenterology
DX: K22.70 Barrett's esophagus without dysplasia (principal); J69.0 Pneumonitis due to inhalation of food and vomit; R05 Cough
CPT/HCPCS: 71046